=== PATIENT | male | born 1990 | race Caucasian/White ===

== ENCOUNTER 2017-01-13 16:11 | Emergency (ER) | payer OTHER ==
[~2017-01-13] VITALS: Ht 167.6 cm; Wt 65.8 kg
[2017-01-13] MEDS ORDERED: GABAPENTIN100 M2 PO (16:20)
[2017-01-13] MEDS ORDERED: CEPHALEXIN500 M1 PO (16:38)
== END 2017-01-13 17:02 | disposition home or self-care (01) ==
LOC: ED 16:11
DX: T25.222A Burn of second degree of left foot, initial encounter (principal); Z29.12 Encounter for prophylactic antivenin; F17.200 Nicotine dependence, unspecified, uncomplicated; X08.8XXA Exposure to other specified smoke, fire and flames, initial encounter; Y93.89 Activity, other specified; Y92.69 Other specified industrial and construction area as the place of occurrence of the external cause; Y99.9 Unspecified external cause status

== ENCOUNTER 2017-04-08 19:13 | Emergency (ER) | payer OTHER ==
[~2017-04-08] VITALS: Ht 167.6 cm; Wt 65.8 kg
[~2017-04-08 19:13] MED LIST: CEPHALEXIN500 M1 PO; GABAPENTIN100 M2 PO
[2017-04-08 19:19] VITALS: BP 111/73
== END 2017-04-08 20:19 | disposition home or self-care (01) ==
LOC: ED 19:13
DX: S61.011A Laceration without foreign body of right thumb without damage to nail, initial encounter (principal); W45.8XXA Other foreign body or object entering through skin, initial encounter; Y93.89 Activity, other specified; Y92.9 Unspecified place or not applicable; Y99.9 Unspecified external cause status

== ENCOUNTER → 2017-04-15 | Outpatient (CLI) | payer BC | END | disposition home or self-care (01) | LOC: RAD 09:28 | DX: M54.32 Sciatica, left side (principal); M79.605 Pain in left leg ==

== ENCOUNTER 2017-09-29 08:27 | Emergency (ER) | payer BC ==
[~2017-09-29] VITALS: Wt 65.8 kg
[2017-09-29 09:09] LABS: BASO # 0.1 10*3/uL (0.0-0.1); BASO % 0.9 % (0.0-1.0); EOS # 0.4 10*3/uL (0.0-0.4); EOS % 5.2 % (1.0-4.0); HEMATOCRIT 43.5 % (42.0-52.0); LYMPH # 1.9 10*3/uL (1.3-4.4); LYMPH % 26.5 % (27.0-41.0); MEAN CELL VOLUME 91.6 fl (80.0-94.0); MEAN CORPUSCULAR HGB 31.6 pg (27.0-31.0); MEAN CORPUSCULAR HGB CONC 34.5 g/dl (33.0-37.0); MEAN PLATELET VOLUME 10.5 fl (9.6-12.3); MONO # 0.4 10*3/uL (0.1-1.0); MONO % 5.6 % (3.0-9.0); NEUT # 4.3 10*3/uL (2.3-7.9); NEUT % 61.5 % (47.0-73.0); PLATELET COUNT AUTOMATED 243 10*3/uL (130-400); RED BLOOD COUNT 4.75 10*6/uL (4.50-5.90); RED CELL DISTRI WIDTH 11.9 % (0-14.5)
[2017-09-29 09:29] LABS: ALBUMIN 4.3 gm/dl (3.1-4.5); ALKALINE PHOSPHATASE 79 U/L (45-117); BUN 13 mg/dl (7-24); CHLORIDE 104 mmol/L (98-107); CREATININE 0.82 mg/dL (0.70-1.30); SGOT/AST 12 IU/L (3-35); SGPT/ALT 23 U/L (12-78); SODIUM 139 mmol/L (136-145)
[2017-09-29 10:26] VITALS: BP 119/80
[2017-09-29] MEDS ORDERED: Zofran4 MG SL (10:26)
== END 2017-09-29 10:53 | disposition home or self-care (01) ==
LOC: ED 08:27
PROVIDERS: Student in an Organized Health Care Education/Training Program
DX: R51 Headache (principal); F17.200 Nicotine dependence, unspecified, uncomplicated; Z98.890 Other specified postprocedural states

== ENCOUNTER 2020-02-29 20:16 | Emergency (ER) | payer BC ==
[~2020-02-29 20:16] MED LIST changes: +Zofran4 MG SL
[2020-02-29] MEDS ORDERED: NORCO 5-325 TA1 EACH PO (21:18)
[2020-02-29] MEDS ORDERED: CEFADROXIL500 M1 PO (21:18)
== END 2020-02-29 21:52 | disposition home or self-care (01) ==
LOC: ED 20:16
DX: S62.636B Displaced fracture of distal phalanx of right little finger, initial encounter for open fracture (principal); Z79.899 Other long term (current) drug therapy; X58.XXXA Exposure to other specified factors, initial encounter; Y93.89 Activity, other specified; Y92.89 Other specified places as the place of occurrence of the external cause; Y99.8 Other external cause status